=== PATIENT | male | born 1955 | race Caucasian/White ===

== ENCOUNTER 2021-09-20 09:46 | Outpatient (CLI) | payer MEDICARE, SELFPAY ==
--- NOTE | ~2021-09-20 | US_ITS ---
US right upper quadrant INDICATION: Elevated liver enzymes PROCEDURE: Realtime right upper abdominal ultrasound. COMPARISON: No prior studies for comparison. FINDINGS: The pancreas is normal without focal mass or pancreatic ductal dilation. Liver echotexture is increased, consistent with fatty infiltration. There is normal directional flow in the portal ve in. There are gallstones. No gallbladder wall thickening or pericholecystic fluid. Common bile duct danny ures 5 mm. No sonographic Tabares's sign. IMPRESSION: 1: Cholelithiasis. 2: Hepatic steatosis. Reviewed, dictated and finalized at location B.
== END 2021-09-20 09:47 | disposition home or self-care (01) ==
LOC: ANHIMG 09:51
PROVIDERS: PCP Internal Medicine; Visit Provider Internal Medicine Gastroenterology
DX: K75.81 Nonalcoholic steatohepatitis (NASH) (principal); K80.20 Calculus of gallbladder without cholecystitis without obstruction
CPT/HCPCS: 76705

== ENCOUNTER → 2022-03-19 10:20 | Outpatient (CLI) | payer MEDICARE, SELFPAY ==
--- NOTE | ~2022-03-19 | US_ITS ---
EXAMINATION: US right upper quadrant DATE: 03/19/2022 10:41 INDICATION: K75.81 - Nonalcoholic steatohepatitis (ACOSTA) TECHNIQUE: Multiple grayscale and Doppler ultrasound images of the right upper quadrant were obtained . COMPARISON: 09/20/2021. FINDINGS: The visualized portions of the pancreas are normal. The liver is enlarged with normal echog enicity and echotexture. No surface nodularity. Normal hepatopetal flow in the main portal vein. Gall stones and biliary sludge. No wall thickening or pericholecystic fluid. The common bile duct measures 4 mm. There was no sonographic Atbares sign. IMPRESSION: Hepatomegaly. Echogenic liver, most commonly due to steatosis but also can be seen with hepatitis and fibrosis. Cholelithiasis, without sonographic evidence of cholecystitis. Reviewed, dictated and finalized at location K. IMPRESSION: Hepatomegaly. Echogenic liver, most commonly due to steatosis but also can be s een with hepatitis and fibrosis. Cholelithiasis, without sonographic evidence o f cholecystitis.
== END ==
PROVIDERS: PCP Internal Medicine; Visit Provider Internal Medicine Gastroenterology
DX: K75.81 Nonalcoholic steatohepatitis (NASH) (principal)
CPT/HCPCS: 76705

== ENCOUNTER 2024-05-04 03:07 | Day surgery (SDC) | payer MEDICARE, SELFPAY ==
--- NOTE | 2024-04-30 09:16 | PC.NURSE ---
Called [facility] Cardiology and left a message for Teofilo for cardiac clearance for patient's Colonoscopy.
[2024-04-30 13:37] VITALS: BMI 36.1
--- NOTE | 2024-04-30 13:44 | PC.NURSE ---
Spoke with patient regarding medication Xarelto. Pt. verbalizes understanding that the last dose is to be taken on 04/30/2024 and the Endoscopist will instruct them when to restart after the procedure.
--- NOTE | 2024-05-03 15:01 | WPDANESEPP ---
Anes - Eval Pre Procedure Procedure: Operation Date: 05/04/24 11:00 Proposed Procedures p Screening Colonoscopy - Chatianya Jocye MD Date/Time: 05/03/24 15:01 Pre Op Diagnosis: hx of colonic polyps Patient Data Age: 69 Gender: M Height: 1.7 m Weight: 104.5 kg Allergies Allergy/AdvReac Type Severity Reaction Status Date / Time lisinopril Allergy Mild Unknown Verified 04/30/24 13:34 Home Medications Medication Instructions Recorded Confirmed Type carvedilol 3.125 mg tablet 3.125 mg PO Q12H 09/14/21 04/30/24 History ixekizumab 80 mg/mL subcutaneous 80 mg subcut MONTHLY 09/14/21 04/30/24 History auto-injector (Taltz Autoinjector) metformin 500 mg tablet 500 mg PO DAILY 09/14/21 04/30/24 History rivaroxaban 10 mg tablet (Xarelto) 10 mg PO DAILY 09/14/21 04/30/24 History rosuvastatin 5 mg tablet 5 mg PO DAILY 09/14/21 04/30/24 History empagliflozin 10 mg tablet 10 mg PO DAILY 04/30/24 04/30/24 History (Jardiance) icosapent ethyl 1 gram capsule g PO 04/30/24 History (Vascepa) valsartan 160 mg tablet mg 04/30/24 History Patient hx anesthesia problems: none Family hx anesthesia problems: none Results Review: All pre-operative results and documents have been reviewed as part of the pre-operative evaluation. [facility] Past Medical History Medical History CAD (coronary artery disease) HTN (hypertension) with goal to be determined ACOSTA (nonalcoholic steatohepatitis) Obesity (BMI 35.0-39.9 without comorbidity) Psoriatic arthritis Family History Family History Father Diabetes mellitus Mother Cerebrovascular accident Social History Social History Smoking status: Never smoker Alcohol intake: current Drinks per week: 20 Substance use: never Exam Day of Procedure 05/03/24 15:01
[2024-05-04 10:13] VITALS: BP 162/78; PULSE 60; RESP 18; TEMP 35.7; O2SAT 99
[2024-05-04] MEDS: LACTATED RINGERS 1,000 ML 150 ML IV CONT (10:27)
[2024-05-04 10:32] LABS: Glucose Point of Care 127 mg/dl (65-105)
--- NOTE | 2024-05-04 10:44 | WPDANESEPPF ---
Anes - Initial Pre Proc Eval Procedure: Operation Date: 05/04/24 11:00 Proposed Procedures p Screening Colonoscopy - Chaitanya Joyce MD Date/Time: 05/04/24 10:44 Surgeon: Chaitanya Joyce MD Pre Op Diagnosis: hx of colonic polyps Patient Data Age: 69 Gender: M Height: 1.7 m Weight: 104.9 kg Last Vital Signs Temp 35.7 C L 05/04/24 10:13 Pulse 60 05/04/24 10:13 Resp 18 05/04/24 10:13 BP 162/78 H 05/04/24 10:13 Pulse Ox 99 05/04/24 10:13 O2 Del Method Room Air 05/04/24 10:13 Allergies Allergy/AdvReac Type Severity Reaction Status Date / Time lisinopril Allergy Mild Unknown Verified 05/04/24 10:12 Home Medications Medication Instructions Recorded Confirmed Type carvedilol 3.125 mg tablet 3.125 mg PO Q12H 09/14/21 05/04/24 History ixekizumab 80 mg/mL subcutaneous 80 mg subcut MONTHLY 09/14/21 05/04/24 History auto-injector (Taltz Autoinjector) metformin 500 mg tablet 500 mg PO DAILY 09/14/21 05/04/24 History rivaroxaban 10 mg tablet (Xarelto) 10 mg PO DAILY 09/14/21 05/04/24 History rosuvastatin 5 mg tablet 5 mg PO DAILY 09/14/21 05/04/24 History empagliflozin 10 mg tablet 10 mg PO DAILY 04/30/24 05/04/24 History (Jardiance) icosapent ethyl 1 gram capsule 1 g PO DAILY 04/30/24 05/04/24 History (Vascepa) valsartan 160 mg tablet 160 mg PO DAILY 04/30/24 05/04/24 History Laboratory Tests 05/04/24 10:28 POC Capillary Glucose 127 H mg/dl (65-105) Patient hx anesthesia problems: none Family hx anesthesia problems: none Results Review: All pre-operative results and documents have been reviewed as part of the pre-operative evaluation. [facility] Past Medical History Medical History CAD (coronary artery disease) HTN (hypertension) with goal to be determined ACOSTA (nonalcoholic steatohepatitis) Obesity (BMI 35.0-39.9 without comorbidity) Psoriatic arthritis Family History Family History Father Diabetes mellitus Mother Cerebrovascular accident Social History Social History Smoking status: Never smoker Alcohol intake: current Drinks per week: 20 Substance use: never Anes - Eval Final PreProcedure Day of Procedure 05/04/24 10:44 Patient weight: obese Heart: regular rate and rhythm Lungs: clear to auscultation Airway: Mallampati scale class II Neurological: alert and oriented Last oral intake: >/= 8 hours ASA classification: III Emergent: no Anesthetic plan: proceed Anesthesia type and monitoring: general GIVS and standard monitoring Results Review: All pre-operative results and documents have been reviewed as part of the pre-operative evaluation. Informed Consent: The patient's anesthetic plan and its attendant risks and benefits were discussed with the patient/family/POA. Questions were solicited and answers provided to the satisfaction of the patient/family/POA.
--- NOTE | 2024-05-04 11:03 | PM.IMHP ---
H&P: HPI History of Present Illness Date/Time: 05/04/24 11:03 Chief Complaint: History of polyps Narrative: The patient has a history of colonic polyps, the last colonoscopy was 5 years ago. Review of Systems Review of Systems: All systems reviewed & are unremarkable except as noted in HPI and below PMFSH Past Medical History Medical History CAD (coronary artery disease) HTN (hypertension) with goal to be determined ACOSTA (nonalcoholic steatohepatitis) Obesity (BMI 35.0-39.9 without comorbidity) Psoriatic arthritis Family History Family History Father Diabetes mellitus Mother Cerebrovascular accident Social History Social History Smoking status: Never smoker Alcohol intake: current Drinks per week: 20 Substance use: never Meds Home Medications and Allergies Home Medications Medication Instructions Recorded Confirmed Type carvedilol 3.125 mg tablet 3.125 mg PO Q12H 09/14/21 05/04/24 History ixekizumab 80 mg/mL subcutaneous 80 mg subcut MONTHLY 09/14/21 05/04/24 History auto-injector (Taltz Autoinjector) metformin 500 mg tablet 500 mg PO DAILY 09/14/21 05/04/24 History rivaroxaban 10 mg tablet (Xarelto) 10 mg PO DAILY 09/14/21 05/04/24 History rosuvastatin 5 mg tablet 5 mg PO DAILY 09/14/21 05/04/24 History empagliflozin 10 mg tablet 10 mg PO DAILY 04/30/24 05/04/24 History (Jardiance) icosapent ethyl 1 gram capsule 1 g PO DAILY 04/30/24 05/04/24 History (Vascepa) valsartan 160 mg tablet 160 mg PO DAILY 04/30/24 05/04/24 History Allergies Allergy/AdvReac Type Severity Reaction Status Date / Time lisinopril Allergy Mild Unknown Verified 05/04/24 10:12 Vital Signs Vital Signs - 24 hr 05/04/24 10:13 Temperature 96.3 F L Pulse Rate 60 Respiratory Rate 18 Blood Pressure 162/78 H Pulse Oximetry 99 Oxygen Delivery Room Air Assessment and Plan Assessment and plan (1) History of colonic polyps: Code(s): Z86.0100 - Personal history of colon polyps, unspecified Status: Acute Plan The patient is deemed a good candidate for the procedure. Consent signed. Will proceed.
[2024-05-04 11:27] VITALS: BP 65/36; PULSE 60; RESP 18; O2SAT 93
[2024-05-04 11:37] VITALS: BP 82/37; PULSE 55; RESP 21; O2SAT 92
[2024-05-04 11:47] VITALS: BP 109/62; PULSE 64; RESP 17; O2SAT 98
[2024-05-04 11:55] VITALS: BP 114/72
== END 2024-05-04 12:08 | disposition home or self-care (01) ==
PROVIDERS: PCP Internal Medicine; Visit Provider Internal Medicine Gastroenterology
PROC: 0DJD8ZZ Inspection of Lower Intestinal Tract, Via Natural or Artificial Opening Endoscopic (ICD-10-PCS; CPT 45378; principal; 2024-05-04 11:00)
DX: Z12.11 Encounter for screening for malignant neoplasm of colon (principal); K57.30 Diverticulosis of large intestine without perforation or abscess without bleeding; I10 Essential (primary) hypertension; I25.10 Atherosclerotic heart disease of native coronary artery without angina pectoris; K75.81 Nonalcoholic steatohepatitis (NASH); L40.50 Arthropathic psoriasis, unspecified; E66.9 Obesity, unspecified; Z68.36 Body mass index [BMI] 36.0-36.9, adult; Z79.01 Long term (current) use of anticoagulants; Z79.84 Long term (current) use of oral hypoglycemic drugs; Z86.0100 Personal history of colon polyps, unspecified; Z86.79 Personal history of other diseases of the circulatory system; Z82.49 Family history of ischemic heart disease and other diseases of the circulatory system
CPT/HCPCS: G0105; 82948; J2003; J2371; J2704; J7120

== ENCOUNTER 2025-02-10 05:02 | Emergency (ER) | payer MEDICARE, SELFPAY ==
[2025-02-10 05:04] VITALS: BP 177/86; PULSE 76; RESP 17; TEMP 36.4; O2SAT 96
--- OUTSIDE RECORDS SUMMARY | 2025-02-10 05:04 | XMS_ITS | Encounter Summary ---
Author Organization [facility] Address [address] [place] [address] Care Team Providers Care Natural Gas Engineer Name Role Phone Fernando Martinez MD Primary Care Provider [phone] Reason for Visit * Reason Onset Date Comments Nurse Only 09/06/2022 Medication Issue 09/06/2022 Encounter Details Date Type Department Care Team (Late st Contact Info) Description 09/06/2022 Telephone [facility] [address] [place] [phone] Crescencio Blackburn MD [address] [facility] [address] [place] [address] Nurse Only; Medication Issue Social History Tobacco Use Types Packs/Day Years Used Date Smoking Tobacco: Never Assessed Sex and Gender Information Value Date Recorded Sex Assigned at Not on file 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 .Mariah Welch * Telephone Encounter - April Mcconnell - 09/17/2022 12:43 PM CDT Pt called in needing his taltz inj. [phone] * Telephone Encounter - Che Corey - 09/14/2022 8:21 AM CST [facility] Rep Charli is calling in regards of pt medication for his Taltz 80MG that was prescribed lastyear by Alexey. Rep states that it needs a prior authorization. Pt next appt is 11/02/22 with ....... [facility] number is [phone] [employer] * Telephone Encounter - Gemini Dietz - 09/12/2022 1:09 PM CST Patient stated he is passed due for his taltz and would like to know if the pharmacy can be contacted for authorization starr. Patient uses [facility]. [employer] * Telephone Encounter - Jenny Jackson - 09/06/2022 4:05 PM CST Pt has been out of Taltz 1 month and pt is needing a refill and he is also scheduled for appointment 11/02/22 [facility] Special[facility] [employer] documented in this encounter Plan of Treatment Not on file documented as of this encounter Visit Diagnoses Not on filedocumented in this encounter Care Teams Natural Gas Engineer Relationship Specialty Start Date End Date Fernando Martinez MD [address] [place] [address] [address] [place] [id number] PCP - General 09/06/22 documented as of this encounter
--- OUTSIDE RECORDS SUMMARY | 2025-02-10 05:04 | XMS_ITS | Clinical Summary ---
Author Organization [facility] Address [address] [place] [phone] Phone Care Team Providers Care Account Receivable Clerk Name Role Phone Fernando Martinez MD Primary Care Provider Allergies No known active allergies Medications rosuvastatin (CRESTOR) 40 mg Oral tablet Take 40 mg by mouth daily. Active prasugrel (EFFIENT) 5 mg Oral Tab Take 5 mg by mouth daily. Active atenolol (TENORMIN) 25 mg Oral tablet Take 25 mg by mouth daily. Active niacin ER 24 hour (NIASPAN ER) 1,000 mg Oral Tb24 Take 1,000 mg by mouth 2 times daily. Active naproxen sodium (ALEVE) 220 mg Oral Tab Take 220 mg by mouth 1 time daily as needed. 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 Gender Identity Not on file Sexual Orientation Not on file Occupation Industry Job Start Date Job End Date Not on file Not on file Not on file Not on file Last Filed Vital Signs Vital Sign Reading Time Taken Comments Blood Pressure 148/89 02/20/2013 4:50 PM CDT Pulse 61 02/20/2013 4:50 PM CDT Temperature 36.8 C (98.2 F) 02/20/2013 4:50 PM CDT Respiratory Rate 18 02/20/2013 4:50 PM CDT Oxygen Saturation 95% 02/20/2013 4:50 PM CDT Inhaled Oxygen Concentration - - Weight 97.5 kg (215 lb) 02/20/2013 11:09 AM CDT Height 170.2 cm (5' 7) 02/19/2013 8:24 AM CDT Body Mass Index 33.67 02/19/2013 8:24 AM CDT Plan of Treatment Health Maintenance Due Date Last Done Comments DTAP/TDAP/TD VACCINES (1 - Tdap) 1975 COLORECTAL SCREENING 2001 Colorectal Cancer Screening 2001 FIT-DNA Q 3 years 2001 FIT/FOBT Q 1 year 2001 Flex Sig/CT Colonography Q 5 years 2001 PNEUMOCOCCAL VACCINE 50+ YEARS (1 of 1 - PCV) 05/03/20 06 ZOSTER VACCINE (1 of 2) 2006 INFLUENZA VACCINE (#1) 2025 RSV VACCINE (60+ or ) (1 - 1-dose 75+ series) 2031 Advance Directives For more information, please contact: [phone] * Full Code (Latest Code Status on File) Date Activated Date Inactivated Comments 02/20/2013 11:05 AM 02/20/2013 6:56 PM Care Teams Account Receivable Clerk Relationship Specialty Start Date End Date Fernando Martinez MD [address] [facility] [address] [place] [address] PCP - General Internal Medicine 02/19/13
--- OUTSIDE RECORDS SUMMARY | 2025-02-10 05:04 | XMS_ITS | Encounter Summary ---
Author Organization [facility] Address 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
--- OUTSIDE RECORDS SUMMARY | 2025-02-10 05:04 | XMS_ITS | Encounter Summary ---
Author Organization [facility] Address 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
--- OUTSIDE RECORDS SUMMARY | 2025-02-10 05:04 | XMS_ITS | Clinical Summary ---
Author Organization [facility] Address [address] [place] [address] Care Team Providers Care Associate Buyer Name Role Phone Fernando Martinez MD Primary Care Provider [phone] Source Comments [facility],non-owned Affiliates and Associated Physician Practices is amultiple site organization consisting of ambulatory clinics and hospital sitesin [place], [place], [place] and [place]. This disclosure is being madepursuant to the Care Everywhere program and may not contain all information available regarding this patient. 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 Gender Identity Not on file Sexual Orientation Not on file Plan of Treatment Health Maintenance Due Date Last Done Comments COLOGUARD (AGES 45-75) - COL ON CA SCREENING 1956 COLON MONITORING 1956 COLONOSCOPY - COLON CA SCREENING 1956 CT COLONOGRAPHY - COLON CA SCREENING 1956 Colorectal Cancer Screening 1956 FIT - COLON CA SCREENING 1956 FLEX SIG - COLON CA SCREENING 1956 MEDICARE AWV 12 MONTHS 1956 HEPATITIS C SCREENING 04/29/1974 DTAP/TDAP/TD VACCINES (1 - Tdap) 1975 PNEUMOCOCCAL VACCINE 50+ (1 of 1 - PCV) 2006 ZOSTER VACCINE (1 of 2) 2006 LIPID TESTING 06/18/2018 06/18/2013 COVID-19 VACCINE (1 - 2023-2 5 season) 2024 DEPRESSION SCREENING 07/08/2024 INFLUENZA VACCINE (#1) 2025 Respiratory Syncytial Virus (RSV) Vaccine Pt: or over 60 yrs (1 - 1-dose 75+ series) 2031 HEPATITIS B VACCINE Aged Out No longe r eligible based on patient's age to complete this topic HIB VACCINE Aged Out No longer eligi ble based on patient's age to complete this topic HPV VACCINE Aged Out No longer eligi ble based on patient's age to complete this topic MENINGOCOCCAL (Group B) VACC INE SHARED DECISION-MAKING Aged Out No longer eligibl e based on patient's age to complete this topic MENINGOCOCCAL GROUPS A/C/Y/W VACCINE Aged Out No longer eligible b ased on patient's age to complete this topic Insurance MEDICARE Care Teams Associate Buyer Relationship Specialty Start Date End Date Fernando Martinez MD [address] [place] [address] [address] [place] [address] PCP - General 09/06/22
[2025-02-10 07:17] VITALS: BP 142/86; PULSE 77; RESP 16; TEMP 36.8; O2SAT 97
--- OUTSIDE RECORDS SUMMARY | 2025-02-10 07:22 | XMS_ITS | Encounter Summary ---
Author Organization [facility] Address 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
--- OUTSIDE RECORDS SUMMARY | 2025-02-10 07:22 | XMS_ITS | Clinical Summary ---
Author Organization [facility] Address [address] [place] [address] Care Team Providers Care Tractor Distributor Name Role Phone Fernando Martinez MD Primary Care Provider [phone] Source Comments [facility],non-owned Affiliates and Associated Physician Practices is amultiple site organization consisting of ambulatory clinics and hospital sitesin [place], [place], [place] and [place]. This disclosure is being madepursuant to the Care Everywhere program and may not contain all information available regarding this patient. 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
--- OUTSIDE RECORDS SUMMARY | 2025-02-10 07:22 | XMS_ITS | Encounter Summary ---
Author Organization [facility] Address [address] [place] [address] Care Team Providers Care Director Part Name Role Phone Fernando Martinez MD Primary Care Provider [phone] Reason for Visit * Reason Onset Date Comments Nurse Only 09/06/2022 Medication Issue 09/06/2022 Encounter Details Date Type Department Care Team (Late st Contact Info) Description 09/06/2022 Telephone [facility] [address] [facility] [place] [phone] Crescencio Blackburn MD 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 [phone] * Telephone Encounter - Che Corey - 09/14/2022 8:21 AM CST [facility] Rep Charli is calling in regards of pt medication for his Taltz 80MG that was prescribed lastyear by Alexey. Rep states that it needs a prior authorization. Pt next appt is 11/02/22 with ....... [facility] number is [phone] SPORTATION SPECIALIST * Telephone Encounter - Gemini Dietz - 09/12/2022 1:09 PM CST Patient stated he is passed due for his taltz and would like to know if the pharmacy can be contacted for authorization starr. Patient uses [facility]. SPORTATION SPECIALIST * Telephone Encounter - Jenny Jackson - 09/06/2022 4:05 PM CST Pt has been out of Taltz 1 month and pt is needing a refill and he is also scheduled for appointment 11/02/22 [facility] Specialty SPORTATION SPECIALIST documented in this encounter Plan of Treatment Not on file documented as of this encounter Visit Diagnoses Not on filedocumented in this encounter Care Teams Director Part Relationship Specialty Start Date End Date Fernando Martinez MD [address] [place] [address] [address] [place] [phone] PCP - General 09/06/22 documented as of this encounter
--- OUTSIDE RECORDS SUMMARY | 2025-02-10 07:22 | XMS_ITS | Clinical Summary ---
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
--- OUTSIDE RECORDS SUMMARY | 2025-02-10 07:22 | XMS_ITS | Encounter Summary ---
Author Organization [employer] [employer] Address [address] [place] [address] Care Team Providers Care Pattern Maker Name Role Phone Fernando Martinez MD Primary Care Provider [phone] Encounter Details Date Type Department Care Team [...] on file Legal Sex Male 4:10 AM PURCHASING COORDINATOR Gender Identity Not on file Sexual Orientation Not on file documented as of this encounter Plan of Treatment Not on file documented as of this encounter Visit Diagnoses Diagnosis Pain in joint, pelvic region and thigh- Primary documented in this encounter Care Teams Pattern Maker Relationship Specialty Start Date End Date Fernando Martinez MD [address] [facility] [address] [place] [address] PCP - General Internal Medicine 02/19/13 documented as of this encounter
--- NOTE | 2025-02-10 07:49 | ED_ITS ---
HPI - Dental/Oral General Chief complaint: Dental/Oral Stated complaint: wisdom tooth pulled Time Seen by Provider: 02/10/25 07:02 History of Present Illness HPI Narrative: Patient is a 69-year-old male who presents ER with bleeding at the location of tooth 17. That was extracted surgically yesterday. Last dose of Xarelto was on 02/08/2025. He did not take his morning dose yesterday and he has not yet taken his morning dose today. He did well a couple hours after the surgery but then began bleeding from the area. He has tried using gauze/compression without improvement. He continues to spit out blood so he came here to be evaluated. No fevers or chills or sweats. No dizziness. No loss of consciousness. Related Data Home Medications ?Medication ?Instructions ?Recorded ?Confirmed ?Last Taken ?Type carvedilol 3.125 mg tablet 3.125 mg PO Q12H 09/14/21 05/04/24 05/04/24 History ixekizumab 80 mg/mL subcutaneous 80 mg subcut MONTHLY 09/14/21 05/04/24 04/20/24 History auto-injector (Taltz Autoinjector) metformin 500 mg tablet 500 mg PO DAILY 09/14/21 05/04/24 05/03/24 History rivaroxaban 10 mg tablet (Xarelto) 10 mg PO DAILY 09/14/21 05/04/24 04/29/24 History rosuvastatin 5 mg tablet 5 mg PO DAILY 09/14/21 05/04/24 05/03/24 History empagliflozin 10 mg tablet 10 mg PO DAILY 04/30/24 05/04/24 05/03/24 History (Jardiance) icosapent ethyl 1 gram capsule 1 g PO DAILY 04/30/24 05/04/24 05/03/24 History (Vascepa) valsartan 160 mg tablet 160 mg PO DAILY 04/30/24 05/04/24 05/03/24 History Allergies Allergy/AdvReac Type Severity Reaction Status Date / Time lisinopril Allergy Mild Unknown Verified 02/10/25 05:07 Review of Systems Constitutional: Constitutional: Reports no additional constitutional complaints ENT: Reports system reviewed and no additional complaints, except as documented Neurologic: Reports system reviewed and no additional complaints, except as documented [facility] Past Medical History Medical History CAD (coronary artery disease) HTN (hypertension) with goal to be determined ACOSTA (nonalcoholic steatohepatitis) Obesity (BMI 35.0-39.9 without comorbidity) Psoriatic arthritis Family History Family History Father Diabetes mellitus Mother Cerebrovascular accident Social History Social History Smoking status: Never smoker Alcohol intake: current Drinks per week: 20 Substance use: never Exam Narrative: GENERAL: Well-appearing, well-nourished, and in no acute distress. HEAD: Normocephalic, atraumatic. ENT: Mucous membranes moist. Bleeding from extraction site at tooth 17. Losing, non arterial. CHEST: Clear to auscultation. No respiratory distress. EXTREMITIES: Normal range of motion. No edema. NEURO: Alert and oriented x3. PSYCH: Normal mood and affect. Course Course Emergency Course: Bleeding controlled after saturation with TXA and some local injection of lidocaine with epinephrine. Patient observed appropriate for discharge home. Vital Signs Vital signs: Vital Signs Temperature 97.5 F L 02/10/25 05:04 Pulse Rate 76 02/10/25 05:04 Respiratory Rate 17 02/10/25 05:04 Blood Pressure 177/86 H 02/10/25 05:04 Pulse Oximetry 96 02/10/25 05:04 Oxygen Delivery Room Air 02/10/25 05:04 Temperature 98.2 F 02/10/25 07:17 Pulse Rate 77 02/10/25 07:17 Respiratory Rate 16 02/10/25 07:17 Blood Pressure 142/86 H 02/10/25 07:17 Pulse Oximetry 97 02/10/25 07:17 Oxygen Delivery Room Air 02/10/25 05:04 Discharge Plan Discharge Clinical Impression: Surgical wound hemorrhage after dental procedure Patient Disposition: Home Condition: Stable Additional Instructions: Follow-up with your dental surgeon for further care. Return ER if you have significant bleeding. Avoid using a straw or eating anything too tough today. Recommend you eat soup, broth, shakes. Patient Language: Citizen Of [place] Prescriptions: No Action rosuvastatin 5 mg tablet 5 mg PO DAILY Xarelto 10 mg tablet 10 mg PO DAILY Rx Instructions: for 35 days carvedilol 3.125 mg tablet 3.125 mg PO Q12H Rx Instructions: must administer with a meal/food metformin 500 mg tablet 500 mg PO DAILY Taltz Autoinjector 80 mg/mL auto-injector 80 mg subcut MONTHLY valsartan 160 mg tablet 160 mg PO DAILY icosapent ethyl [Vascepa] 1 gram capsule 1 g PO DAILY Jardiance 10 mg tablet 10 mg PO DAILY Follow-up/Referrals: Juan,Fernando Rodríguez MD [Primary Care Provider] - 1 Week
[2025-02-10] MEDS: SODIUM CHLORIDE 0.9% IV 50 ML, TRANEXAMIC ACID 1,000 MG TOPICAL (08:01)
--- NOTE | 2025-02-10 08:10 | PC.NURSE ---
per edp, 4x4 is to be soaked in medication, given to the pt to bite on, and reassessed every 15 minutes. saturated 4x4 is to be replaced every 15 minutes if still bleeding
--- NOTE | 2025-02-10 08:24 | PC.NURSE ---
assessed pt, still bleeding. pt states he thinks bleeding may be slowing down but i'm not sure. 4x4 replaced with a fresh 4x4 saturated with medication
--- NOTE | 2025-02-10 08:51 | PC.NURSE ---
assessed pt, still bleeding. 4x4 replaced with a fresh 4x4 saturated with medication. edp aware
--- NOTE | 2025-02-10 09:20 | PC.NURSE ---
assessed pt with edp in room. edp irrigated mouth, applied another 4x4 with medication
--- NOTE | 2025-02-10 09:36 | PC.NURSE ---
assessed pt, still bleeding. pt states he does not think he is bleeding as much. 4x4 replaced with a fresh 4x4 saturated with saline
[2025-02-10 10:18] VITALS: BP 139/82; PULSE 70; RESP 16; TEMP 36.8; O2SAT 97
== END 2025-02-10 10:20 | disposition home or self-care (01) ==
PROVIDERS: Emergency Provider Emergency Medicine; PCP Internal Medicine
DX: K91.840 Postprocedural hemorrhage of a digestive system organ or structure following a digestive system procedure (principal); I25.10 Atherosclerotic heart disease of native coronary artery without angina pectoris; I10 Essential (primary) hypertension; K75.81 Nonalcoholic steatohepatitis (NASH); L40.50 Arthropathic psoriasis, unspecified; Y83.8 Other surgical procedures as the cause of abnormal reaction of the patient, or of later complication, without mention of misadventure at the time of the procedure
CPT/HCPCS: 99282